=== PATIENT | male | born 1990 | race Caucasian/White ===

== ENCOUNTER 2016-12-28 18:54 | Emergency (ER) | payer OTHER ==
[2016-12-28 19:18] VITALS: BP 117/74
--- NOTE | 2016-12-28 19:47 | XRAY Preliminary Report ---
Exam: XR Knee 4 View RT IMPRESSION: No acute fracture or dislocation identified. If clinical concern persists, consider further assessment with MRI. [facility] SITE ID: [id number]
--- NOTE | 2016-12-28 19:50 | XRAY Report ---
EXAM: RIGHT KNEE RADIOGRAPHY EXAM DATE: 12/28/2016 07:20 PM. CLINICAL HISTORY: Injury, posterior pain COMPARISON: None. TECHNIQUE: 4 views. FINDINGS: Bones: Bony mineralization appears appropriate. No acute fracture or focal osseous destruction identi fied. Joints: Alignment and joint spaces appear maintained. No dislocation. No large suprapatellar joint ef fusion. Soft Tissues: No radiopaque foreign body. IMPRESSION: No acute fracture or dislocation identified. If clinical concern persists, consider further assessment with MRI. [facility] Referring Provider Line: [phone] SITE ID: [id number]
[2016-12-28] MEDS ORDERED: oxyCOD/ACETAMIN 5 MG/325 MG TABLET PO STA (20:29)
[2016-12-28] MEDS ORDERED: IBUPROFEN 400 MG TABLET PO STA (20:29)
--- NOTE | 2016-12-28 20:45 | ED Physician Documentation ---
History of Present Illness - Stated complaint Stated Complaint: RT KNEE PX - Chief complaint Chief Complaint: Ext Problem - Additonal information Additional information: hx from pt 26 AD male was rinning and felt his knee go weak as if something gave way posterior swelling inc pain since cannot walk was fine p[rior no direct injury was just running on a flat surface Review of Systems Musculoskeletal: reports: Joint pain PD PAST MEDICAL HISTORY - Past Medical History Past Medical History: No - Past Surgical History Past Surgical History: No - Present Medications Home Medications: Ambulatory Orders Medication Instructions Recorded Confirmed Ibuprofen [Motrin] 400 mg PO Q6H PRN #30 tablet 12/28/16 - Allergies Allergies/Adverse Reactions: Allergies Allergy/AdvReac Type Severity Reaction Status Date / Time No Known Drug Allergies Allergy Verified 12/28/16 19:18 - Social History Does the pt smoke?: No Smoking Status: Never smoker Does the pt drink ETOH?: No Does the pt have substance abuse?: No - Immunizations Immunizations are current?: Yes PD ED PE NORMAL - Vitals Vital signs reviewed: Yes - Extremities Extremities: Other (L knee moderate effusin, limited flexion / extension 2/2 pain, no MCL LCL laxity,l + ACL laxity (slight), no bony TTP, no calf or achilles defect, TTP ST popliteal fossa, MSV intact) Results - Vitals Vitals: Vital Signs - 24 hr 12/28/16 19:15 Temperature 36.6 C Heart Rate 80 Respiratory 16 Rate Blood Pressure 117/74 O2 Saturation 98 Oxygen O2 Source Room air - Rads (name of study) knee Radiology: See rad report (neg) Departure - Departure Disposition: 01 Home, Self Care Clinical Impression: Knee internal derangement Qualifiers: Laterality: right Qualified Code(s): M23.91 - Unspecified internal derangement of right knee Condition: Good Instructions: ED Knee Injury Cruciate Ligament, ED Meniscal Injury Knee Poss Follow-Up: HEBER Sarmiento [Provider Group] Prescriptions: Ibuprofen [Motrin] 400 mg PO Q6H PRN #30 tablet PRN Reason: Pain Comments: The xray was fine - no fracture But based on your exam I am concerned you may have a soft tissue injury within your knee - possibly the ACL or the posterior aspect of the meniscus For tonight I recommend we wrap the knee up and get you on crutches and get the pain under control You will need to follow up with orthopedics at [facility] for a recheck and perhaps a MRI of the knee
[2016-12-28] MEDS ORDERED: IBUPROFEN 400 MG TABLET PO ONE (20:48)
[2016-12-28] MEDS ORDERED: oxyCOD/ACETAMIN 5 MG/325 MG TABLET PO ONE (20:49)
[2016-12-28] MEDS ORDERED: HYDROcod/ACET 5/325 Prepack 6 PO ONE ×2 (21:43→22:00)
== END 2016-12-28 22:09 | disposition home or self-care (01) ==
LOC: ED 18:54
DX: M23.91 Unspecified internal derangement of right knee (principal)
CPT/HCPCS: 73564; 99283; A9270

== ENCOUNTER 2017-01-27 15:39 | Outpatient (CLI) | payer OTHER ==
--- NOTE | 2017-01-27 17:22 | MRI Report ---
EXAM: RIGHT KNEE MRI WITHOUT CONTRAST EXAM DATE: 01/27/2017 04:37 PM. CLINICAL HISTORY: RT KNEE PAIN. COMPARISON: RIGHT KNEE RADIOGRAPHY 12/28/2016. TECHNIQUE: Multiplanar, multisequence T1-weighted and fluid-sensitive sequences of the knee without c ontrast. Other: None. FINDINGS: Images are degraded by patient motion artifacts. Bones: No fractures or subluxations. No marrow edema. No bone lesions. Articular Cartilage: Unremarkable. Medial Meniscus: Extensive abnormal signal in the posterior horn of the medial meniscus not reaching the surface suggestive of intrasubstance delamination tear. Lateral Meniscus: The lateral meniscus is intact. Cruciate Ligaments: The anterior and posterior cruciate ligaments are intact. Collateral Ligaments: The medial collateral and lateral collateral ligamentous structures are intact. Tendons: The quadriceps, patellar, semimembranosus, and popliteus tendons are unremarkable. Musculature: Edema in the distal part of the biceps femoris. There is a questionable cystic area in t he more proximal part of this muscle seen only partially in the sagittal sequences, not included in t he axial and coronal sequences. No edema or fatty atrophy. Other: No effusion. No popliteal cyst. No loose bodies. The medial and lateral retinacula, patellofe moral ligaments and iliotibial band are intact. No bursitis. The subcutaneous tissues and fat pads ar e unremarkable. IMPRESSION: 1. Extensive abnormal signal in the posterior horn of the medial meniscus not reaching the surface chatman ggestive of intrasubstance delamination tear. 2. Edema in the distal part of the biceps femoris, can be due to muscular strain or partial-thickness tear. There is a questionable cystic area in the more proximal part of this muscle seen only partial ly in the sagittal sequences, not included in the axial and coronal sequences. Please correlate for a ny localized pain that may suggest intrasubstance hematoma. May consider MRI of the distal thigh for further evaluation if necessary. [facility]CULOSKELETAL [facility] SE[facility] Referring Provider Line: [phone] SITE ID: [id number]
== END 2017-01-27 15:40 | disposition home or self-care (01) ==
LOC: DI 15:39
PROVIDERS: ATTEND Nurse Practitioner Family
DX: M25.561 Pain in right knee (principal)